=== PATIENT | female | born 1950 | race Caucasian/White ===

== ENCOUNTER 2023-07-21 08:18 | Day surgery (SDC) | payer OTHER, MEDICARE ==
[2023-07-16 11:13] VITALS: BMI 23.3
[2023-07-21] MEDS ORDERED: OFLOXACIN 0.3% OPHTHALMIC SOLUTION 5 ML BOTTLE ONE (08:36)
[2023-07-21] MEDS ORDERED: TROPICAMIDE 1% OPHTH SOLN 15 ML BOTTLE ONE (08:36)
[2023-07-21] MEDS ORDERED: KETOROLAC TROMETHAMINE 0.5% EYE DROP 1 DROP DROPS ONE (08:36)
[2023-07-21] MEDS ORDERED: PHENYLEPHRINE 2.5% OPTHALMIC DROP 2ML BOTTLE ONE (08:36)
[2023-07-21] MEDS ORDERED: CYCLOPENTOLATE HCL 1% OPHTH SOLN 2 ML BOTTLE ONE (08:37)
[2023-07-21] MEDS: OFLOXACIN 0.3% OPHTHALMIC SOLUTION 5 ML BOTTLE OS SCH (08:45)
[2023-07-21] MEDS: TROPICAMIDE 1% OPHTH SOLN 15 ML BOTTLE OS SCH (08:45)
[2023-07-21] MEDS: KETOROLAC TROMETHAMINE 0.5% EYE DROP 1 DROP DROPS OS SCH (08:45)
[2023-07-21] MEDS: PHENYLEPHRINE 2.5% OPHTH SOLN 15 ML BOTTLE OS SCH (08:45)
[2023-07-21] MEDS: CYCLOPENTOLATE HCL 1% OPHTH SOLN 2 ML BOTTLE OS SCH (08:45)
[2023-07-21] MEDS ORDERED: BACITRACIN/POLYMYXIN OPH OINT 3.5 GM TUBE ONE ×3 (08:49→09:09)
[2023-07-21] MEDS ORDERED: TETRACAINE 0.5% OPHTH SOLN 2 ML BOTTLE ONE ×3 (08:51→09:09)
[2023-07-21] MEDS ORDERED: BETAXOLOL HCL 0.25% OPHTHALMIC 10 ML DROPSBTL ONE (09:09)
[2023-07-21] MEDS ORDERED: EPI-SHUGARCAINE (EPINEPHRINE 0.025% & LIDOCAINE-PF 0.75%) 4ML ONE (09:09)
[2023-07-21] MEDS ORDERED: NEO/POLYMYX B SULF/DEXAMETH OPHTHALMIC 5ML BOTTLE ONE (09:09)
[2023-07-21] MEDS ORDERED: POVIDONE-IODINE 5% OPHTHALMIC PREP 30 ML SOLUTION ONE (09:09)
[2023-07-21] MEDS ORDERED: BSS (NA/CA/MG/K) BALANCED SALT SOLUTION OPHTH SOLN 15 ML BOTTLE ONE (09:10)
[2023-07-21] MEDS ORDERED: MIDAZOLAM HCL 2 MG/2 ML SINGLE DOSE VIAL ONE ×2 (10:31→10:56)
[2023-07-21] MEDS ORDERED: ACETAMINOPHEN 325 MG TABLET (FP) PO PRN (11:34)
[2023-07-21 12:24] VITALS: RESP 16; TEMP 97.1
[2023-07-21 12:26] VITALS: BP 103/65; PULSE 64
== END 2023-07-21 13:00 | disposition home or self-care (01) ==
LOC: FASU 08:18
PROVIDERS: ATTEND Ophthalmology
PROC: 08RK3JZ Replacement of Left Lens with Synthetic Substitute, Percutaneous Approach (ICD-10-PCS; principal; 2023-07-21 10:55)
DX: H25.89 Other age-related cataract (principal)
CPT/HCPCS: 66984; V2632

== ENCOUNTER 2023-09-15 07:16 | Day surgery (SDC) | payer OTHER, MEDICARE ==
[2023-09-11 15:17] VITALS: BMI 23.3
[2023-09-15] MEDS ORDERED: PHENYLEPHRINE 2.5% OPTHALMIC DROP 2ML BOTTLE ONE (07:23)
[2023-09-15] MEDS ORDERED: OFLOXACIN 0.3% OPHTHALMIC SOLUTION 5 ML BOTTLE ONE (07:23)
[2023-09-15] MEDS ORDERED: TROPICAMIDE 1% OPHTH SOLN 15 ML BOTTLE ONE (07:23)
[2023-09-15] MEDS ORDERED: CYCLOPENTOLATE HCL 1% OPHTH SOLN 2 ML BOTTLE ONE (07:23)
[2023-09-15] MEDS ORDERED: KETOROLAC TROMETHAMINE 0.5% EYE DROP 1 DROP DROPS ONE (07:23)
[2023-09-15] MEDS: CYCLOPENTOLATE HCL 1% OPHTH SOLN 2 ML BOTTLE OD SCH (08:05)
[2023-09-15] MEDS: OFLOXACIN 0.3% OPHTHALMIC SOLUTION 5 ML BOTTLE OD SCH (08:05)
[2023-09-15] MEDS: TROPICAMIDE 1% OPHTH SOLN 15 ML BOTTLE OD SCH (08:05)
[2023-09-15] MEDS: PHENYLEPHRINE 2.5% OPHTH SOLN 15 ML BOTTLE OD SCH (08:05)
[2023-09-15] MEDS: KETOROLAC TROMETHAMINE 0.5% EYE DROP 1 DROP DROPS OD SCH (08:05)
[2023-09-15] MEDS ORDERED: BACITRACIN/POLYMYXIN OPH OINT 3.5 GM TUBE ONE (08:40)
[2023-09-15] MEDS ORDERED: EPI-SHUGARCAINE (EPINEPHRINE 0.025% & LIDOCAINE-PF 0.75%) 4ML ONE (08:41)
[2023-09-15] MEDS ORDERED: NEO/POLYMYX B SULF/DEXAMETH OPHTHALMIC 5ML BOTTLE ONE (08:41)
[2023-09-15] MEDS ORDERED: POVIDONE-IODINE 5% OPHTHALMIC PREP 30 ML SOLUTION ONE (08:41)
[2023-09-15] MEDS ORDERED: TETRACAINE 0.5% OPHTH SOLN 2 ML BOTTLE ONE (08:41)
[2023-09-15] MEDS ORDERED: BETAXOLOL HCL 0.25% OPHTHALMIC 10 ML DROPSBTL ONE (08:41)
[2023-09-15] MEDS ORDERED: MIDAZOLAM HCL 2 MG/2 ML SINGLE DOSE VIAL ONE (09:29)
[2023-09-15] MEDS ORDERED: ACETAMINOPHEN 325 MG TABLET (FP) ONE (10:43)
[2023-09-15] MEDS: ACETAMINOPHEN 325 MG TABLET (FP) PO PRN (10:45)
[2023-09-15 13:43] VITALS: BP 134/66; PULSE 64
[2023-09-15 13:46] VITALS: RESP 15; TEMP 97.5
== END 2023-09-15 11:00 | disposition home or self-care (01) ==
LOC: FASU 07:16
PROVIDERS: ATTEND Ophthalmology
PROC: 08RJ3JZ Replacement of Right Lens with Synthetic Substitute, Percutaneous Approach (ICD-10-PCS; principal; 2023-09-15 09:45)
DX: H25.89 Other age-related cataract (principal)
CPT/HCPCS: 66984; V2632